=== PATIENT | female | born 1985 | race African-American/Black ===

== ENCOUNTER 2021-11-15 23:10 | Emergency (ER) | payer BC, MEDICAID, SELFPAY ==
[2021-11-16 01:53] LABS: Bilirubin Neg (Negative); Blood, Urine 50 (Negative); Clarity Cloudy (Clear); Glucose, Urine (Dipstick) Normal (Negative); Ketone, Urine Negative (Negative); Leukocyte 500 (Negative); Nitrite Negative (Negative); Protein, Urine (Dipstick) 100 mg/dl (Neg-Trace)
[2021-11-16 01:54] LABS: Pregnancy Test - Urine (BHCG) Negative (Negative); Pregu Control Background? CLEAR/WHITE (CLR/WHITE); Pregu Control Bar Appear? YES (CONTROL BAR)
[2021-11-16 02:02] LABS: WBC/HPF Greater Than 50 HPF (0-3)
[2021-11-16 02:03] LABS: Bacteria/HPF 3+ HPF (None Seen); Trichomonas/HPF 2+ HPF (None Seen)
[2021-11-16 02:04] LABS: Mucous/LPF 1+ LPF (<2+)
[2021-11-16] MEDS ORDERED: Acetaminophen 500 MG TAB ONE (02:29)
== END 2021-11-16 02:25 | disposition home or self-care (01) ==
LOC: CSHERS 23:10
DX: N39.0 Urinary tract infection, site not specified (principal)
CPT/HCPCS: 81003; 81015; 81025; 99284

== ENCOUNTER 2022-06-28 10:22 | Emergency (ER) | payer BC, SELFPAY ==
[2022-06-28 12:50] LABS: SARS-CoV-2 NAA Rapid Test Not Detected (NotDetected)
== END 2022-06-28 11:35 | disposition home or self-care (01) ==
LOC: CSHERS 10:22
DX: J06.9 Acute upper respiratory infection, unspecified (principal); Z20.822 Contact with and (suspected) exposure to COVID-19
CPT/HCPCS: 99283

== ENCOUNTER 2023-02-14 19:54 | Emergency (ER) | payer BC, SELFPAY ==
[~2023-02-14 19:54] MED LIST: Iopamidol 370 76% 100 ML VIAL ONE
[2023-02-14 20:30] LABS: Hematocrit 35.7 % (34.9-44.5); Hemoglobin 11.6 g/dL (12.0-15.5); Mean Corpuscular HGB CONC 32.5 g/dL (32.0-36.0); Mean Platelet Volume 11.5 fl (7.4-10.4); Platelet Count 217 10x3/uL (150-450); Red Blood Cell (RBC) Count 4.15 10x6/uL (3.90-5.03); White Blood Cell (WBC) Count 5.5 10x3/uL (3.5-10.5)
[2023-02-14 20:33] LABS: MDiff Complete? YES
[2023-02-14 20:44] LABS: ALT (SGPT) 24 U/L (8-55); AST (SGOT) 22 U/L (5-34); Albumin 3.9 g/dL (3.5-5.0); Alkaline Phosphatase 142 U/L (40-110); Anion Gap 17 mmol/L (10-20); BUN (Urea Nitrogen) 11 mg/dL (7.0-18.7); Bilirubin, Total 0.2 mg/dL (0.2-1.2); Calc. Creatinine Clearance 0 mL/min (70-130); Calcium 8.8 mg/dL (7.8-10.44); Carbon Dioxide 21 mmol/L (22-29); Chloride 104 mmol/L (98-107); Estimated GFR 107; Globulin 3.2 g/dL (2.4-3.5); Glucose 224 mg/dL (70-105); Lipase 34 U/L (8-78); Potassium 3.5 mmol/L (3.5-5.1); Protein, Total 7.1 g/dL (6.0-8.3); Sodium 138 mmol/L (136-145)
[2023-02-14 21:00] LABS: Platelet Adequacy Comment Appears Adequate; RBC Morph Comment Within Normal Limits
[2023-02-14 21:03] LABS: Band 5 % (5-11); Eosinophils 1 % (0-10); Lymphocytes 55 % (21-51); Monocytes 11 % (0-10); Neutrophil 28 % (42-75)
[2023-02-14 21:08] LABS: Bilirubin Neg (Negative); Blood, Urine 25 (Negative); Clarity Cloudy (Clear); Glucose, Urine (Dipstick) >=1000 mg/dL (Negative); Ketone, Urine Negative (Negative); Leukocyte 25 (Negative); Nitrite Negative (Negative); Protein, Urine (Dipstick) 100 mg/dl (Neg-Trace)
[2023-02-14] MEDS ORDERED: Dexamethasone 10 MG/ML VIAL ONE (21:21)
[2023-02-14] MEDS ORDERED: Aspirin 325 MG TAB ONE (21:22)
[2023-02-14] MEDS ORDERED: Ventolin HFA Inhaler 60 PUFF INHALER INH SCH (21:30)
[2023-02-14 21:35] LABS: Bacteria/HPF 4+ HPF (None Seen); CAUTI Indications for Culture Dysuria,urgency,freq; Squamous Epithelial 0-3 HPF (0-3); WBC/HPF 21-50 HPF (0-3)
[2023-02-14 21:36] LABS: Urine Culture Reflex Yes Yes
[2023-02-14 22:06] LABS: BHCG - Serum Negative (NEGATIVE); Pregs Control Background? CLEAR/WHITE (CLR/WHITE); Pregs Control Bar Appear? YES (CONTROL BAR)
[2023-02-14 23:47] LABS: Troponin I Less than 0.010 ng/mL (< 0.028)
== END 2023-02-14 23:51 | disposition home or self-care (01) ==
LOC: CSHERS 19:54
DX: R07.9 Chest pain, unspecified (principal); J06.9 Acute upper respiratory infection, unspecified; N39.0 Urinary tract infection, site not specified; Z20.822 Contact with and (suspected) exposure to COVID-19
CPT/HCPCS: 36415; 71045; 71275; 80053; 81001; 83690; 84484; 84703; 85025; 85379; 87077; 87086; 87186; 87635; 93005; J1100; Q9967

== ENCOUNTER 2023-11-20 09:14 | Emergency (ER) | payer BC ==
[2023-11-20] MEDS ORDERED: Metoclopramide HCl 10 MG (2 mL) VIAL ONE (09:50)
[2023-11-20] MEDS ORDERED: diphenhydrAMINE 50 MG/ML VIAL ONE (09:50)
[2023-11-20] MEDS ORDERED: Ketorolac Tromethamine 30 MG (1 mL) VIAL ONE (09:50)
[2023-11-20 10:33] LABS: #Basophils 0.03 10x3/uL (0.0-0.2); #Eosinphils 0.02 10x3/uL (0.0-0.5); #Monocytes 0.73 10x3/uL (0.0-1.1); #Neutrophils 5.23 10x3/uL (1.5-8.4); %Basophils 0.3 % (0.0-2.0); %Eosinophils 0.2 % (0.0-6.0); %Lymphocytes 30.8 % (18.0-47.0); %Monocytes 8.4 % (0.0-10.0); %Neutrophils 60.1 % (40.0-75.0); Hematocrit 38.5 % (34.9-44.5); Hemoglobin 12.7 g/dL (12.0-15.5); Mean Corpuscular Hemoglobin 29.7 pg (27.0-33.0); Mean Corpuscular Volume 90.2 fL (81.6-98.3); Mean Platelet Volume 11.6 fL (7.4-10.4); Platelet Count 215 10x3/uL (150-450); RBC Distribution Width 14.8 % (11.5-14.5); Red Blood Cell (RBC) Count 4.27 10x6/uL (3.90-5.03); White Blood Cell (WBC) Count 8.7 10x3/uL (3.5-10.5)
[2023-11-20 11:08] LABS: ALT (SGPT) 15 U/L (8-55); AST (SGOT) 17 U/L (5-34); Albumin 3.8 g/dL (3.5-5.0); Alkaline Phosphatase 137 U/L (40-110); Anion Gap 14 mmol/L (10-20); BUN (Urea Nitrogen) 11 mg/dL (7.0-18.7); Bilirubin, Total 0.7 mg/dL (0.2-1.2); Calc. Creatinine Clearance 0 mL/min (70-130); Calcium 9.1 mg/dL (7.8-10.44); Carbon Dioxide 19 mmol/L (22-29); Chloride 107 mmol/L (98-107); Estimated GFR 110; Globulin 3.2 g/dL (2.4-3.5); Glucose 165 mg/dL (70-105); Influenza A by NAA Not Detected (NotDetected); Influenza B by NAA Not Detected (NotDetected); Potassium 3.8 mmol/L (3.5-5.1); SARS-CoV-2 NAA Rapid Test Not Detected (NotDetected); Sodium 136 mmol/L (136-145)
== END 2023-11-20 12:37 | disposition home or self-care (01) ==
LOC: CSHERS 09:14
DX: R51.9 Headache, unspecified (principal); E86.0 Dehydration; Z55.6 Problems related to health literacy; E11.9 Type 2 diabetes mellitus without complications; Z87.891 Personal history of nicotine dependence
CPT/HCPCS: 80053; 85025; 96374; 96375; J1200; J1885; J2765